=== PATIENT | male | born 2000 | race Hispanic/Latino ===

== ENCOUNTER 2022-08-04 07:02 | Emergency (ER) | payer BC ==
[~2022-08-04] VITALS: Ht 180.3 cm; Wt 81.7 kg
[2022-08-04] MEDS ORDERED: PEPTO-BISM262 MG/15 PO (07:23)
== END 2022-08-04 07:50 | disposition home or self-care (01) ==
LOC: ED 07:02
DX: R19.7 Diarrhea, unspecified (principal); Z79.899 Other long term (current) drug therapy
CPT/HCPCS: 99283